=== PATIENT | male | born 1975 | race Caucasian/White ===

== ENCOUNTER 2019-08-19 19:42 | Inpatient (IN) | payer OTHER ==
[~2019-08-19] VITALS: Ht 177.8 cm; Wt 141.8 kg
--- NOTE | 2019-08-19 20:18 | NUR ---
Pt arrives to ed for right foot pain, pt reports it swollen and red for him. Pt also was noted to have low spo2 and breathing heavily. Pt denies trauma. Pt reports he may have hit his foot on something in his sleep. Pt has good pedal pulse and cap refill.
[2019-08-19 21:12] LABS: BASOPHILS # (AUTO) 0.02 x10^3/uL (0-0.1); BASOPHILS % (AUTO) 0 % (0-1); EOSINOPHILS # (AUTO) 0.26 x10^3/uL (0-0.4); EOSINOPHILS % (AUTO) 2 % (1-7); LYMPHOCYTES # (AUTO) 3.47 x10^3/uL (1-3.4); LYMPHOCYTES % (AUTO) 24 % (22-44); MD NO; MEAN CORPUSCULAR HEMOGLOBIN 30.3 pg (27.5-34.5); MEAN CORPUSCULAR VOLUME 89.2 fL (81-97); MEAN PLATELET VOLUME 9.6 fL (7.4-10.4); MONOCYTES # (AUTO) 1.27 x10^3/uL (0.2-0.8); MONOCYTES % (AUTO) 9 % (2-9); NEUTROPHILS # (AUTO) 9.61 x10^3/uL (1.8-6.8); NEUTROPHILS % (AUTO) 66 % (42-75); PLATELET COUNT 289 x10^3/uL (130-400); RED BLOOD COUNT 5.45 x10^6/uL (4.38-5.82); RED CELL DISTRIBUTION WIDTH 14.1 % (9.4-14.8)
[2019-08-19 21:23] LABS: ALANINE AMINOTRANSFERASE 34 U/L (12-78); ALBUMIN 3.4 g/dL (3.4-5.0); ANION GAP 7 mmol/L (5-15); CALCIUM 8.8 mg/dL (8.5-10.1); CHLORIDE 109 mmol/L (98-107)
[2019-08-19 21:27] LABS: ALKALINE PHOSPHATASE 86 U/L (45-117); BILIRUBIN,TOTAL 0.4 mg/dL (0.2-1.0); TOTAL PROTEIN 7.7 g/dL (6.4-8.2); TROPONIN I < 0.015 ng/mL (0.000-0.045)
[2019-08-19] MEDS ORDERED: ALBUTEROL/IPRATROPIUM 2.5MG/0.5MG, 3 ML ONE (21:47)
[2019-08-19 21:55] LABS: HCT (SEDRATE) 48.6 % (39.2-51.8)
[2019-08-19] MEDS: PLEASE ENTER ALLERGIES MC SCH (22:00)
[2019-08-19] MEDS ORDERED: ALBUTEROL/IPRATROPIUM 2.5MG/0.5MG, 3 ML NPPB ONE (22:00)
[2019-08-19] MEDS ORDERED: CLINDAMYCIN PMX 600MG/50ML 50 ML ONE (22:25)
--- NOTE | 2019-08-19 22:25 | NUR ---
Pt still hypoxic after breathing treatment admin by this RN, Pt reports he does feel like his breathing is easier, piv established with us guidance.
[2019-08-19] MEDS ORDERED: SODIUM CHLORIDE FLUSH 10ML SYR IVF PRN (22:30)
[2019-08-19] MEDS ORDERED: CLINDAMYCIN PMX 600MG/50ML 50 ML IV ONE (22:30)
--- NOTE | 2019-08-19 22:51 | NUR ---
Pt medicated per emar.
[2019-08-19] MEDS ORDERED: HYDROcodone/APAP 5/325 TABLET PO PRN (23:00)
[2019-08-19] MEDS ORDERED: NITROGLYCERIN 0.4 MG BOTTLE (25 TABS) SL PRN (23:00)
[2019-08-19] MEDS ORDERED: morphine SULFATE 10 MG/ML, 1ML IVPush PRN (23:00)
[2019-08-19] MEDS ORDERED: ONDANSETRON 2MG/ML, 2ML IVPush PRN (23:00)
[2019-08-19] MEDS ORDERED: ACETAMINOPHEN 325 MG TABLET PO PRN (23:00)
[2019-08-19] MEDS ORDERED: PHARMACY MAY ADJ FOR RENAL FX MC PRN (23:00)
[2019-08-19] MEDS ORDERED: KETOROLAC 30 MG/1 ML IV PRN (23:00)
[2019-08-19] MEDS ORDERED: hydrALAzine 20 MG/ML, 1ML IVPush PRN (23:00)
[2019-08-19 23:14] LABS: TROPONIN I < 0.015 ng/mL (0.000-0.045)
--- NOTE | 2019-08-19 23:26 | NUR ---
Pt back from CT, attempted to call report.
[2019-08-19] MEDS ORDERED: OMNIPAQUE 350 MG/ML, 75ML BOTTLE ONE (23:30)
[2019-08-19] MEDS ORDERED: NICOTINE 14MG/24 HR PATCH.TD24 ONE (23:43)
[2019-08-19] MEDS ORDERED: HEPARIN 5,000 UNITS/ML, 1ML ONE (23:43)
--- NOTE | 2019-08-19 23:55 | NUR ---
HOSPITAL BED REQUESTED.
[2019-08-20] MEDS: HEPARIN 5,000 UNITS/ML, 1ML SQ SCH ×3 (00:09→17:14)
[2019-08-20] MEDS: NICOTINE 14MG/24 HR PATCH.TD24 TD SCH ×2 (00:09→20:17)
--- NOTE | 2019-08-20 00:12 | NUR ---
PT PLACED ON HOSPITAL BED, MEDICATED PER EMAR AND GIVEN MEAL. PT HAS NO NEEDS, VSS.
--- NOTE | 2019-08-20 00:13 | NUR ---
Pt report from Babatunde ashley. This rn to assume care of pt.
[2019-08-20] MEDS ORDERED: FUROSEMIDE 20 MG/2 ML IV ONE (00:30)
--- NOTE | 2019-08-20 00:32 | NUR ---
This rn to give lasix to pt. Pt refusing. Pt educated and still refusing. "i dont feel like going to the bathroom all night." Pt denies any further needs. Vss on 4L nc. Pt on hospital bed.
--- NOTE | 2019-08-20 02:07 | NUR ---
Pt report to Glen ashley.
--- NOTE | 2019-08-20 03:20 | NUR ---
PT RESTING QUIETLY. NAD. VSS.
--- NOTE | 2019-08-20 04:20 | NUR ---
PT SLEEPING. NAD. VSS
[2019-08-20 05:20] LABS: BASOPHILS # (AUTO) 0.09 x10^3/uL (0-0.1); BASOPHILS % (AUTO) 1 % (0-1); EOSINOPHILS # (AUTO) 0.23 x10^3/uL (0-0.4); EOSINOPHILS % (AUTO) 2 % (1-7); LYMPHOCYTES # (AUTO) 3.99 x10^3/uL (1-3.4); LYMPHOCYTES % (AUTO) 27 % (22-44); MD NO; MEAN CORPUSCULAR HEMOGLOBIN 30.1 pg (27.5-34.5); MEAN CORPUSCULAR HGB CONC 33.5 g/dL (33.2-36.2); MEAN CORPUSCULAR VOLUME 89.8 fL (81-97); MEAN PLATELET VOLUME 9.7 fL (7.4-10.4); MONOCYTES # (AUTO) 1.21 x10^3/uL (0.2-0.8); MONOCYTES % (AUTO) 8 % (2-9); NEUTROPHILS % (AUTO) 63 % (42-75); PLATELET COUNT 267 x10^3/uL (130-400); RED BLOOD COUNT 5.19 x10^6/uL (4.38-5.82); RED CELL DISTRIBUTION WIDTH 13.9 % (9.4-14.8)
[2019-08-20 05:28] LABS: ANION GAP 5 mmol/L (5-15); CALCIUM 8.8 mg/dL (8.5-10.1); CHLORIDE 110 mmol/L (98-107); CREATININE 0.99 mg/dL (0.7-1.3)
[2019-08-20 05:32] LABS: TROPONIN I < 0.015 ng/mL (0.000-0.045)
--- NOTE | 2019-08-20 05:35 | NUR ---
PT SLEEPING. VITALS STABLE
[2019-08-20] MEDS ORDERED: ASPIRIN 325 MG TABLET EC ONE (05:54)
[2019-08-20] MEDS: PLEASE ENTER ALLERGIES MC SCH ×2 (06:00→13:08)
[2019-08-20] MEDS: ASPIRIN 325 MG TABLET EC PO SCH (06:01)
--- NOTE | 2019-08-20 06:03 | NUR ---
PT MEDICATED PER MAR. POC DISCUSSED. PT DENIES CURRENT NEEDS. CALL LIGHT ON LAP.
[2019-08-20] MEDS ORDERED: COLCHICINE 0.6 MG CAPSULE PO ONE ×2 (09:30→11:00)
[2019-08-20] MEDS ORDERED: HEPARIN 5,000 UNITS/ML, 1ML ONE (09:51)
[2019-08-20] MEDS ORDERED: KETOROLAC 30 MG/1 ML ONE (09:52)
--- NOTE | 2019-08-20 10:58 | NUR ---
lab at bedside. discussed with pt need for UA.
[2019-08-20 11:38] LABS: TROPONIN I < 0.015 ng/mL (0.000-0.045)
[2019-08-20] MEDS: FAMOTIDINE 20 MG TABLET PO SCH ×2 (11:38→20:17)
--- NOTE | 2019-08-20 11:45 | NUR ---
pt states right foot pain has imporved. Only "hurts when turned certain ways"
--- NOTE | 2019-08-20 12:01 | NUR ---
Admit profile completed.
--- NOTE | 2019-08-20 12:11 | NUR ---
Pt provided with lunch tray, pt placed back on Oxygen. Pt informed of importance to keep oxygen on to maintain saturations up.
--- NOTE | 2019-08-20 12:57 | NUR ---
pt supplied lunch. Currently resting with no s/sx of distress.
--- NOTE | 2019-08-20 13:04 | NUR ---
Updated pt on current POC. pt agreeable.
--- NOTE | 2019-08-20 13:09 | NUR ---
REPORT GIVEN TO ALBERTO YOUSIF
[2019-08-20 14:05] VITALS: BP 150/81
[2019-08-20 18:10] LABS: MICROSCOPIC NOT IND
[2019-08-20 18:14] LABS: CULTURE INDICATED? NO
[2019-08-20 20:08] VITALS: BP 118/84
[2019-08-20] MEDS: COLCHICINE 0.6 MG CAPSULE PO SCH (20:17)
[2019-08-20 23:21] VITALS: BP 116/77
[2019-08-21] MEDS: HEPARIN 5,000 UNITS/ML, 1ML SQ SCH ×3 (01:04→17:14)
[2019-08-21 01:06] VITALS: BP 121/85
[2019-08-21 05:09] LABS: ANION GAP 6 mmol/L (5-15); CALCIUM 8.8 mg/dL (8.5-10.1); CHLORIDE 112 mmol/L (98-107); CHOLESTEROL, TOTAL 168 mg/dL (140-239); CREATININE 0.97 mg/dL (0.7-1.3); TRIGLYCERIDES 209 mg/dL (50-200); VLDL CHOLESTEROL 42 mg/dL (0-25)
[2019-08-21 05:11] LABS: HDL CHOL % 17 % (26-37); HDL CHOLESTEROL (DIRECT) 28 mg/dL (40-60); LDL CHOLESTEROL,CALCULATED 98 mg/dL (54-169); LDL/HDL RATIO 3.5 (0.5-3.0)
[2019-08-21 05:13] LABS: BASOPHILS # (AUTO) 0.04 x10^3/uL (0-0.1); BASOPHILS % (AUTO) 0 % (0-1); EOSINOPHILS # (AUTO) 0.34 x10^3/uL (0-0.4); EOSINOPHILS % (AUTO) 3 % (1-7); LYMPHOCYTES # (AUTO) 2.99 x10^3/uL (1-3.4); LYMPHOCYTES % (AUTO) 29 % (22-44); MD NO; MEAN CORPUSCULAR HEMOGLOBIN 30.4 pg (27.5-34.5); MEAN CORPUSCULAR HGB CONC 33.9 g/dL (33.2-36.2); MEAN CORPUSCULAR VOLUME 89.5 fL (81-97); MEAN PLATELET VOLUME 9.4 fL (7.4-10.4); MONOCYTES # (AUTO) 0.76 x10^3/uL (0.2-0.8); MONOCYTES % (AUTO) 7 % (2-9); NEUTROPHILS # (AUTO) 6.32 x10^3/uL (1.8-6.8); NEUTROPHILS % (AUTO) 61 % (42-75); PLATELET COUNT 221 x10^3/uL (130-400); RED BLOOD COUNT 5.28 x10^6/uL (4.38-5.82); RED CELL DISTRIBUTION WIDTH 13.4 % (9.4-14.8)
[2019-08-21] MEDS: ASPIRIN 325 MG TABLET EC PO SCH (06:00)
[2019-08-21 06:59] VITALS: BP 125/86
[2019-08-21] MEDS: COLCHICINE 0.6 MG CAPSULE PO SCH (09:31)
[2019-08-21] MEDS: FAMOTIDINE 20 MG TABLET PO SCH (09:32)
[2019-08-21] MEDS ORDERED: REGADENOSON 0.4 MG/5 ML SYRINGE ONE (11:55)
[2019-08-21 13:55] VITALS: BP 122/81
[2019-08-21] MEDS ORDERED: FAMO20TA7 PO (17:30)
[2019-08-21] MEDS ORDERED: ALBU90AE INH (17:30)
[2019-08-21] MEDS ORDERED: IBUP-1221 PO (17:31)
== END 2019-08-21 18:35 | disposition home or self-care (01) | DRG 189 ==
LOC: ED 20:19 → EDIP 22:12 → 4NE 08-20 14:00 → 5SO 08-20 23:05
PROVIDERS: ADMIT Family Medicine; ATTEND Internal Medicine
DX: J96.01 Acute respiratory failure with hypoxia (principal); L03.115 Cellulitis of right lower limb; J44.1 Chronic obstructive pulmonary disease with (acute) exacerbation; E66.2 Morbid (severe) obesity with alveolar hypoventilation; Z68.41 Body mass index [BMI] 40.0-44.9, adult; F17.200 Nicotine dependence, unspecified, uncomplicated; M10.00 Idiopathic gout, unspecified site; Z03.818 Encounter for observation for suspected exposure to other biological agents ruled out
CPT/HCPCS: 36415; 36600; 71045; 71275; 78452; 80048; 80053; 80061; 81003; 82803; 83605; 83735; 83880; 84100; 84145; 84443; 84484; 84550; 85025; 85379; 85651; 87040; 93005; 93017; 93306; G0378; J1644; J1885; J2785; Q9967; A9502; U0001

== ENCOUNTER 2020-12-09 22:17 | Emergency (ER) | payer MEDICAID ==
[~2020-12-09] VITALS: Ht 177.8 cm; Wt 143.9 kg
[~2020-12-09 22:17] MED LIST: ALBU90AE INH; FAMO20TA7 PO; IBUP-1221 PO
[2020-12-09 22:20] VITALS: BP 163/105
[2020-12-10] MEDS ORDERED: IBUPROFEN 800 MG TABLET PO ONE
[2020-12-10] MEDS ORDERED: IBUPROFEN 800 MG TABLET ONE (00:01)
--- NOTE | 2020-12-10 00:09 | NUR ---
PT MEDICATED PER MAR
== END 2020-12-10 00:54 | disposition home or self-care (01) ==
LOC: ED 23:59
DX: S93.432A Sprain of tibiofibular ligament of left ankle, initial encounter (principal); J44.9 Chronic obstructive pulmonary disease, unspecified; M19.90 Unspecified osteoarthritis, unspecified site; M10.9 Gout, unspecified; F17.200 Nicotine dependence, unspecified, uncomplicated; W18.30XA Fall on same level, unspecified, initial encounter; Y93.89 Activity, other specified; Y92.89 Other specified places as the place of occurrence of the external cause; Y99.8 Other external cause status
CPT/HCPCS: 99284